=== PATIENT | female | born 1985 ===

== ENCOUNTER 2024-02-04 04:47 | Day surgery (SDC) | payer BC ==
[2024-01-27 14:04] VITALS: BMI 31.3
[2024-02-04 08:23] VITALS: TEMP 98.3
[2024-02-04 09:43] VITALS: PULSE 82
[2024-02-04 09:56] VITALS: BP 99/56; RESP 20
== END 2024-02-04 10:05 | disposition home or self-care (01) ==
LOC: JASU-ENDO 04:47
PROVIDERS: ATTEND Internal Medicine Gastroenterology
PROC: 0DDP8ZX Extraction of Rectum, Via Natural or Artificial Opening Endoscopic, Diagnostic (ICD-10-PCS; 2024-02-04)
PROC: 0DDN8ZX Extraction of Sigmoid Colon, Via Natural or Artificial Opening Endoscopic, Diagnostic (ICD-10-PCS; 2024-02-04)
PROC: 06LY8CC Occlusion of Hemorrhoidal Plexus with Extraluminal Device, Via Natural or Artificial Opening Endoscopic (ICD-10-PCS; principal; 2024-02-04 08:30)
DX: D12.8 Benign neoplasm of rectum (principal); K63.5 Polyp of colon; K64.8 Other hemorrhoids
CPT/HCPCS: 81025; 88305-TC